=== PATIENT | female | born 1990 | race Caucasian/White ===

== ENCOUNTER 2025-02-10 12:08 | Outpatient (CLI) | payer OTHER, SELFPAY ==
--- NOTE | 2025-02-10 12:15 | CRLHL7_ITS ---
For Patients: As a result of the Century Cures Act, medical imaging exams and procedure reports are released immediately into your electronic medical record. You may view this report before your referring provider. If you have questions, please contact your health care provider. OB ULTRASOUND GREATER THAN 14 WEEKS, 02/10/2025 CLINICAL HISTORY: Dating and viability. COMPARISON: None. TECHNIQUE: Real time neri scale imaging of the fetus was performed. Transabdominal imaging performed. FINDINGS: LMP: 11/03/2024. BK by LMP: 08/10/2025. GA: 14 weeks 1 day. Gestation: Single. Cervix: Visualized. Positioning: Multiple. Placenta: Technique: TA. Placenta Position: Posterior. Dopplers: Heart Rate: 141 bpm. BIOMETRY: BPD: 2.6 cm, 14 weeks 3 days. 51.8% HC: 9.9 cm, 14 weeks 4 days. 51.5% AC: 7.7 cm, 14 weeks 1 day. 55.2% FL: 1.4 cm, 14 weeks 0 days. 39.6% FL/AC Ratio: 17.91% HC/AC: 1.29. EFW: 90.61 g, 0 lb 3 oz. Age by this US: 14 weeks 2 days. BK by this US: 08/09/2025. Percentile by BK: 32.6% IMPRESSION: Single living intrauterine measuring 14 weeks 2 days and sonographic due date 08/09/2025. Pedro Hyatt M.D. Diagnostic Radiologist [email or web address] Transcribed: 1:14 pm DW/Dictated by: Pedro Hyatt MD @ 02/10/2025 12:50:00 PM (Electronically Signed)
== END 2025-02-10 12:09 | disposition home or self-care (01) ==
LOC: US 12:10
PROVIDERS: Visit Provider Midwife
DX: Z34.92 Encounter for supervision of normal pregnancy, unspecified, second trimester (principal); Z3A.14 14 weeks gestation of pregnancy
CPT/HCPCS: 76801; 76805

== ENCOUNTER 2025-02-10 13:34 | Outpatient (CLI) | payer OTHER, SELFPAY | END 2025-02-10 13:35 | disposition home or self-care (01) | PROVIDERS: Visit Provider Midwife | DX: Z34.92 Encounter for supervision of normal pregnancy, unspecified, second trimester (principal); Z3A.14 14 weeks gestation of pregnancy | CPT/HCPCS: 82565; 82570; 83020; 83021; 84156; 84450; 84460; 84520; 85660; 86592; 86703; 86704; 86706; 86762; 86787; 86803; 86850; 86900; 86901; 87086; 87340 ==

== ENCOUNTER 2025-02-17 07:00 | Outpatient (CLI) | payer OTHER, SELFPAY | END 2025-02-17 07:01 | disposition home or self-care (01) | LOC: NFLDREF 02-18 14:46 | PROVIDERS: Visit Provider Midwife | DX: Z34.90 Encounter for supervision of normal pregnancy, unspecified, unspecified trimester (principal); Z87.59 Personal history of other complications of pregnancy, childbirth and the puerperium | CPT/HCPCS: 82570; 84156 ==

== ENCOUNTER 2025-03-05 15:15 | Outpatient (CLI) | payer OTHER, SELFPAY | END 2025-03-05 15:16 | disposition home or self-care (01) | PROVIDERS: Visit Provider Advanced Practice Midwife | DX: Z34.82 Encounter for supervision of other normal pregnancy, second trimester (principal) | CPT/HCPCS: 87491; 87591 ==

== ENCOUNTER 2025-04-02 07:11 | Outpatient (CLI) | payer OTHER, SELFPAY ==
--- NOTE | 2025-04-02 07:15 | CRLHL7_ITS ---
For Patients: As a result of the Century Cures Act, medical imaging exams and procedure reports are released immediately into your electronic medical record. You may view this report before your referring provider. If you have questions, please contact your health care provider. OB ULTRASOUND SURVEY LMP: 11/03/2024. BK by US: 08/10/2025. GA: 21 w, 3 d. INDICATION: screen. TECHNIQUE: Real time neri scale imaging of the fetus was performed. Evaluate anatomy. Transabdominal imaging performed. position: Vertex. Cervix: Visualized. Technique: Transabdominal. Length of closed cervix: 4.1 cm. Placenta/cord: Posterior. Technique: Transabdominal. Placenta tip to internal OS: 4.4 cm. Umbilical Cord: 3-vessel cord. Placenta insertion: Central. Amniotic Fluid: 3.8 cm SDP (greater than/equal to: 2- less than 8 cm). SURVEY: Observed Structures. Calvarium/Spine: Cerebellum: 2.2 cm, 21 w 6 d. Cisterna Magna: 4.2 mm. Nuchal Fold: 4.8 mm. Lateral Ventricle: 6.2 mm. CSP: Yes. Midline Falx: Yes. Choroid Plexus: Yes. Spine: Yes. Abdomen: Stomach: Yes. Abd Cord Insertion: Yes. Urinary Bladder: Yes. Kidneys: Yes. Diaphragm: Yes. Face: Nose/lips: Yes. Orbital view: Yes. Profile: Yes. Limbs: Upper Extremities: Yes. Lower Extremities: Yes. Hands: Yes. Feet: Yes. Vascular: 4-Chamber Heart: Yes. LVOT: Yes. RVOT: Yes. 3VV: Yes. 3VTV: Yes. BPD: 4.8 cm. 20 w, 4 d, 18 percent. HC: 18.2 cm. 20 w, 4 d, 10 percent. AC: 16.3 cm. 21 w, 2 d, 40 percent. FL: 3.5 cm. 21 w, 0 d, 24 percent. FL/AC ratio: 21.34 percent. HC/AC ratio: 1.12. heart rate: 159 bpm. age by this US: 21 w, 0 d. BK by this US: 08/13/2025. EFW: 397 g. Weight: 14 oz. Percentile by BK: 27 percent. IMPRESSION: 1. Concordance of clinical and sonographic dating. 2. Normal anatomic survey. Pedro Hyatt M.D. Diagnostic Radiologist [email or web address] JANKI/jj jj/Dictated by: Pedro Hyatt MD @ 04/02/2025 10:12:00 AM (Electronically Signed)
== END 2025-04-02 07:12 | disposition home or self-care (01) ==
LOC: US 07:12
PROVIDERS: Visit Provider Advanced Practice Midwife
DX: Z34.92 Encounter for supervision of normal pregnancy, unspecified, second trimester (principal); Z3A.21 21 weeks gestation of pregnancy
CPT/HCPCS: 76805

== ENCOUNTER 2025-05-21 15:14 | Outpatient (CLI) | payer OTHER, SELFPAY | END 2025-05-21 15:15 | disposition home or self-care (01) | LOC: FRMREF 15:14 | PROVIDERS: Visit Provider Advanced Practice Midwife | DX: O26.899 Other specified pregnancy related conditions, unspecified trimester (principal); Z67.91 Unspecified blood type, Rh negative | CPT/HCPCS: 86592; 86850; J2791 ==

== ENCOUNTER 2025-05-27 07:57 | Outpatient (CLI) | payer OTHER, SELFPAY | END 2025-05-27 07:58 | disposition home or self-care (01) | LOC: NFLDREF 05-30 09:53 | PROVIDERS: Visit Provider Advanced Practice Midwife | DX: Z34.83 Encounter for supervision of other normal pregnancy, third trimester (principal) | CPT/HCPCS: 82951; 82952 ==

== ENCOUNTER 2025-07-16 16:00 | Outpatient (CLI) | payer OTHER, SELFPAY | END 2025-07-16 16:01 | disposition home or self-care (01) | LOC: NFLDREF 07-23 00:15 | PROVIDERS: Visit Provider Advanced Practice Midwife | DX: Z34.93 Encounter for supervision of normal pregnancy, unspecified, third trimester (principal) | CPT/HCPCS: 87081; 87653 ==